=== PATIENT | female | born 1955 | race Caucasian/White ===

== ENCOUNTER 2022-03-27 08:30 | Day surgery (SDC) | payer MEDICARE, BC ==
[~2022-03-27] VITALS: Ht 177.8 cm; Wt 110.9 kg
[~2022-03-27 08:30] MED LIST: CITALOPRAM HBR40 MG PO; DITROPAN XL5 MG PO; LOVASTATIN20 MG PO; MELATONIN5 M2 PO; METOPROLOL SUCC25 MG PO; PROBIOTIC250 MG PO
[2022-03-27] MEDS ORDERED: GLUCOSAMINE1000 MG PO (09:02)
[2022-03-27] MEDS ORDERED: MULTI VITAMIN1 EACH PO (09:02)
[2022-03-27] MEDS ORDERED: VITAMIN C100 MG PO (09:02)
--- NOTE | 2022-03-27 11:03 | NUR ---
03/27/22 1103 Jacqui Collier 1056-PATIENT ARRIVED TO PACU ON 2L NC RR EVEN. PATIENT LAYING LEFT LATERAL ABDOMEN SOFT. AROUSES TO REACTIVE TO VERBAL STIMULI. IVF INFUSING.
--- NOTE | 2022-03-28 08:20 | OR ---
[facility] [address], [place] [address] Signed DATE OF OPERATION: 03/27/2022 SURGEON: Toyin Sanz MD PREOPERATIVE DIAGNOSES: 1. 7-10 mm oval shaped sessile hepatic lesion. 2. Minimal sigmoid diverticulosis. 3. External hemorrhoids. POSTOPERATIVE DIAGNOSES: 1. 5-7 mm sessile polyp, hepatic flexure. 2. 4 mm polyp at 85 cm. 3. 4 mm polyp at 80 cm. 4. Minimal sigmoid diverticulosis. 5. Minimal to moderate circumferential external hemorrhoids. PROCEDURE: Colonoscopy with hot biopsy. ESTIMATED BLOOD LOSS: None. 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 We helped her in February 2021 with a colonoscopy due to guaiac-positive stool. She has a known history of hemorrhoids. We found she does have circumferential external hemorrhoids and minimal diverticulosis. We had taken a biopsy out of the hepatic flexure and it was unremarkable. Next to the area was a sessile oval shaped hepatic lesion about 7 mm or so in diameter. We had left that in situ. We had her come back this year for followup colonoscopy. She did well with Versed and fentanyl. She says she has been eating well and having no abdominal pain. She is having good bowel movements. She also underwent a screening colonoscopy with Dr. Den Guevara back in 2004 at age 48. She was told she had external hemorrhoids at that time. She said she has done great over the last year. In the office, I had given her a pamphlet on colonoscopy and we reviewed the nature of the test. She understands there is risk including, but not limited to gas bloating, crampy abdominal pain, bleeding, perforation requiring surgery, and missed diagnosis. She told me the sugar in the Gatorade was a little much last year. Despite our instruction, she did put some MiraLAX and some soda pop which did not go well. She ended up using a non-carbonated beverage after that and worked out well. She said she is quite clean. In the office, she had expressed Electronically Signed By: TOYIN SANZ MD 03/28/22 0820 PATIENT NAME: SARKIS MANDUJANO OPERATIVE REPORT DATE OF : 51 REPORT #: [id number] PHYSICIAN: TOYIN SANZ MD PCP: NIHARIKA MAYS REPORT IS CONFIDENTIAL AND NOT TO BE RELEASED WITHOUT AUTHORIZATION [facility] [address] [place], [place] [address] Signed understanding and wished to proceed. PROCEDURE NOTE: Garrison was taken into our endoscopy suite and placed in the left lateral decubitus position. She was given IV sedation with 6 mg of Versed and 150 mcg of fentanyl. A digital rectal exam was performed and again, she has minimal to moderate circumferential external hemorrhoids. She has good sphincter tone. There were no masses. The adult colonoscope was introduced and advanced all around into the cecum under direct visualization of the camera. She has a somewhat long redundant left colon. Her prep was quite excellent. We could easily see the appendiceal orifice and the ileocecal valve. The scope was then slowly withdrawn. We took pictures throughout for photodocumentation. We spent a significant amount of time around the hepatic flexure and found just a small 5-7 mm sessile polyp. It was easily removed and destroyed completely with the hot biopsy forceps. The other two polyps were removed with the help of hot biopsy forceps as described above. Again, she does have diverticula in the sigmoid colon. They are minimal to moderate in size, few in number, and scattered about. The rectum was unremarkable. Upon retroflexion of the scope, she has very minimal internal hemorrhoid tissue. After this, the gas was suctioned out and the colonoscope removed. Garrison tolerated the procedure quite well. RECOMMENDATIONS: I will see Garrison back in my office in 7 to 14 days to review her results. Toyin Sanz MD [facility]/MODL /[id number] cc: MD Niharika Acosta PA Copies: TOYIN SANZ MD Electronically Signed By: TOYIN SANZ MD 03/28/22 0820 PATIENT NAME: SARKIS MANDUJANO OPERATIVE REPORT DATE OF : 51 REPORT #: [id number] PHYSICIAN: TOYIN SANZ MD PCP: NIHARIKA MAYS REPORT IS CONFIDENTIAL AND NOT TO BE RELEASED WITHOUT AUTHORIZATION [address] [address] Signed NIHARIKA MAYS ~ Electronically Signed By: TOYIN SANZ MD 03/28/22 0820 PATIENT NAME: WESLEYTOMAS NORTHSARKIS OPERATIVE REPORT DATE OF : 51 REPORT #: [id number] PHYSICIAN: TOYIN SANZ MD PCP: NIHARIKA MAYS REPORT IS CONFIDENTIAL AND NOT TO BE RELEASED WITHOUT AUTHORIZATION
--- NOTE | 2022-03-29 16:55 | PATH ---
[facility] [address] [place], [place] [address] Signed SPECIMEN(S): A HEPATIC FLEXURE POLYP SPECIMEN(S): B COLON POLYP AT 85CM SPECIMEN(S): C COLON POLYP AT 80CM SPECIMEN SOURCE: A. HEPATIC FLEXURE POLYP B. COLON POLYP AT 85CM C. COLON POLYP AT 80CM CLINICAL HISTORY: Hepatic flexure lesion, diverticulosis. Postop: External hemorrhoids, diverticulosis, colon polyps FINAL PATHOLOGIC DIAGNOSIS: A. Hepatic flexure polyp: - Tubular adenoma (one fragment). B. Colon polyp at 85 cm: - Tubular adenoma (one fragment). C. Colon polyp at 80 cm: - Tubular adenoma (one fragment). JVR:[facility]:C2NR MICROSCOPIC EXAMINATION: Histologic sections of all submitted blocks are examined by light microscopy. These findings, together with the gross examination, support the pathologic diagnosis. GROSS DESCRIPTION: A. The specimen, labeled and designated "Garrison Mandujano, 1," and designated on the requisition as "hepatic flexure polypectomy," is received in formalin and consists of one knox soft tissue fragment, 0.3 cm. Entirely submitted in (A1). B. The specimen, labeled and designated "Garrison Mandujano, 2," and designated on the requisition as "colon polypectomy 85 cm," is received in formalin and consists of one knox soft tissue fragment, 0.4 cm. Entirely submitted in (B1). C. The specimen, labeled and designated "Garrison Mandujano, 3," and designated on the requisition as "colon polypectomy 80 cm," is received in formalin and consists of one elongated, knox, soft tissue fragment, 0.6 cm. Entirely submitted in (C1). AI (under the direct supervision of a pathologist) PATIENT NAME: SARKIS MANDUJANO PATHOLOGY DATE OF : 51 REPORT #: [id number] PHYSICIAN: CLIFTON LEE PCP: NANCY MAYS REPORT IS CONFIDENTIAL AND NOT TO BE RELEASED WITHOUT AUTHORIZATION [facility] [address] [place], [place] [address] Signed The Gross Description was prepared using a voice recognition system. The report was reviewed for accuracy; however, sound-alike word errors, addition and/or deletions may occur. If there is any question about this report, please contact Client Services. PERFORMING LABORATORY: The technical component was performed by [facility], [address] [place] [id number] (CLIA# [id number]). The professional interpretation was performed by [facility], [facility], [facility] [place] [address] (CLIA#: [id number]). Diagnostician: Mikal Flood MD Pathologist Electronically Signed 03/29/2022 Copies: ~ PATIENT NAME: SARKIS MANDUJANO PATHOLOGY DATE OF : 51 REPORT #: [id number] PHYSICIAN: CLIFTON LEE PCP: NANCY MAYS REPORT IS CONFIDENTIAL AND NOT TO BE RELEASED WITHOUT AUTHORIZATION
== END 2022-03-27 12:00 | disposition home or self-care (01) ==
LOC: OPS 08:30 → DS 08:30 → OPS 12:00
PROVIDERS: ATTEND Colon & Rectal Surgery
PROC: 0DBE8ZZ Excision of Large Intestine, Via Natural or Artificial Opening Endoscopic (ICD-10-PCS; 2022-03-27)
PROC: 0DBL8ZZ Excision of Transverse Colon, Via Natural or Artificial Opening Endoscopic (ICD-10-PCS; principal; 2022-03-27 09:45)
DX: D12.3 Benign neoplasm of transverse colon (principal); K57.30 Diverticulosis of large intestine without perforation or abscess without bleeding; K64.4 Residual hemorrhoidal skin tags; D12.6 Benign neoplasm of colon, unspecified
CPT/HCPCS: 99153; G0500; J2250; J3010; J7121